=== PATIENT | female | born 2000 | race African-American/Black ===

== ENCOUNTER 2020-01-10 | Emergency (ER) | payer OTHER ==
[~2020-01-10] MED LIST: AMOXICILLIN500 MG PO; BACTRIM DS1 TAB PO; FERR SULFATE325 MG PO; FERROUS SULF325 M2 PO; FLUOXETINE HCL20 MG PO; IBUPROFEN600 MG PO; IRON325 M1 PO; KEFLEX500 MG PO; MINIPRESS2 M1 PO; MOTRIN200 MG PO; MOTRIN800 MG PO; NO; OB COMPLETE/DHA PO; ONDANSETRON4 MG PO; PHENERGAN25 MG/TAB PO; PRAZOSIN HCL1 M1 PO; PRE-NATAL PO; PRENATA3 PO; PRENATAL MULTI +DHA PO; PRENATAL MULTI1 CAP PO; PROZAC10 MG PO; ZOFRAN ODT8 MG PO; ZOFRAN4 MG/TAB PO
[2020-01-10 22:27] LABS: HEMATOCRIT 28.1 % (37.0-47.0); HEMOGLOBIN 8.8 g/dl (12.0-16.0); IMMATURE GRANULOCYTES 0.5 % (0.0-5.0); MEAN CELL VOLUME 74.5 fL CALC (80.0-100.0); MEAN CORPUSCULAR HGB 23.3 pG CALC (26.0-32.0); MEAN CORPUSCULAR HGB CONC 31.3 g/L CALC (32.0-36.0); NEUT# 6.58 thou/uL (2.00-7.15); RED BLOOD COUNT 3.77 mill/uL (4.20-5.60); RED CELL DISTRI WIDTH 15.6 % (11.5-15.5)
[2020-01-10 22:33] LABS: URINE BILIRUBIN - DIPSTICK NEGATIVE (NEGATIVE); URINE BLOOD DIPSTICK NEGATIVE (NEGATIVE); URINE COLOR YELLOW; URINE GLUCOSE - DIPSTICK NEGATIVE (NEGATIVE); URINE KETONE NEGATIVE (NEGATIVE); URINE NITRITE - DIPSTICK NEGATIVE (Negative); URINE PH 7.5 (4.5-8.0); URINE PROTEIN - DIPSTICK NEGATIVE (NEG-TRACE); URINE SPECIFIC GRAVITY 1.015; URINE UROBILINOGEN - DIPSTICK 0.2 E.U./dL (0.2)
[2020-01-10 22:34] LABS: URINE LEUK ESTERASE LARGE (NEGATIVE)
[2020-01-10 22:36] LABS: URINE SQUAMOUS EPITHELIAL CELL MODERATE EPI/hpf (0-FEW)
[2020-01-10 22:41] LABS: ALKALINE PHOSPHATASE 44 u/l (38-126); AMYLASE 46 u/l (30-110); ANION GAP 11 (6-22 (CALC)); BILIRUBIN, TOTAL 0.3 mg/dL (0.0-1.4); BUN 7 mg/dL (7-17); BUN/CREATININE RATIO 18 (12-20 (CALC)); CARBON DIOXIDE 22 mmol/l (22-30); CHLORIDE 106 mmol/l (95-108); CREATININE 0.4 mg/dL (0.5-1.0); GFR > 60 ML/MIN (>=60 (CALC)); GFR FOR AFR.AMER. > 60 ML/MIN (>=60 (CALC)); LIPASE 77 u/l (23-300); POTASSIUM 3.2 mmol/l (3.5-5.1); SGOT/AST 16 u/l (14-36); SODIUM 136 mmol/l (137-146); TOTAL PROTEIN 6.7 g/dL (6.3-8.2)
[2020-01-10 22:43] LABS: ALBUMIN 3.5 g/dL (3.2-5.0)
[2020-01-10] MEDS ORDERED: PROMETHAZINE12.5 MG PO (23:27)
[2020-01-11] MEDS ORDERED: KEFLEX500 M1 PO (00:38)
== END 2020-01-11 00:59 | disposition home or self-care (01) ==
PROVIDERS: Family Medicine
DX: O23.42 Unspecified infection of urinary tract in pregnancy, second trimester (principal); B96.89 Other specified bacterial agents as the cause of diseases classified elsewhere; Z3A.25 25 weeks gestation of pregnancy

== ENCOUNTER 2020-02-01 | Emergency (ER) | payer OTHER ==
[~2020-02-01] MED LIST changes: +KEFLEX500 M1 PO; +PROMETHAZINE12.5 MG PO
[2020-02-01 14:31] LABS: HEMATOCRIT 29.7 % (37.0-47.0); HEMOGLOBIN 9.2 g/dl (12.0-16.0); IMMATURE GRANULOCYTES 0.8 % (0.0-5.0); MEAN CELL VOLUME 71.6 fL CALC (80.0-100.0); MEAN CORPUSCULAR HGB 22.2 pG CALC (26.0-32.0); NEUT# 8.24 thou/uL (2.00-7.15); RED BLOOD COUNT 4.15 mill/uL (4.20-5.60); RED CELL DISTRI WIDTH 15.9 % (11.5-15.5)
[2020-02-01 15:00] LABS: ANION GAP 13 (6-22 (CALC)); BUN 6 mg/dL (7-17); BUN/CREATININE RATIO 15 (12-20 (CALC)); CARBON DIOXIDE 21 mmol/l (22-30); CHLORIDE 103 mmol/l (95-108); CREATININE 0.4 mg/dL (0.5-1.0); GFR > 60 ML/MIN (>=60 (CALC)); GFR FOR AFR.AMER. > 60 ML/MIN (>=60 (CALC)); SODIUM 133 mmol/l (137-146)
[2020-02-01 15:02] LABS: POTASSIUM 4.3 mmol/l (3.5-5.1)
== END 2020-02-01 14:25 | disposition short-term general hospital (02) ==
PROVIDERS: Family Medicine
DX: O62.9 Abnormality of forces of labor, unspecified (principal); Z3A.27 27 weeks gestation of pregnancy
CPT/HCPCS: J3475

== ENCOUNTER 2020-02-23 | Emergency (ER) | payer OTHER ==
[2020-02-23] MEDS ORDERED: [UNRECOGNIZED DRUG - OTHER] (15:50)
[2020-02-23 16:14] LABS: HEMATOCRIT 26.9 % (37.0-47.0); HEMOGLOBIN 8.2 g/dl (12.0-16.0); IMMATURE GRANULOCYTES 0.8 % (0.0-5.0); MEAN CELL VOLUME 70.1 fL CALC (80.0-100.0); MEAN CORPUSCULAR HGB 21.4 pG CALC (26.0-32.0); MEAN CORPUSCULAR HGB CONC 30.5 g/dL CAL (32.0-36.0); NEUT# 6.24 thou/uL (2.00-7.15); RED BLOOD COUNT 3.84 mill/uL (4.20-5.60); RED CELL DISTRI WIDTH 17.8 % (11.5-15.5)
[2020-02-23 16:26] LABS: ANION GAP 10 (6-22 (CALC)); BUN 3 mg/dL (7-17); BUN/CREATININE RATIO 9 (12-20 (CALC)); CARBON DIOXIDE 21 mmol/l (22-30); CHLORIDE 106 mmol/l (95-108); CREATININE 0.3 mg/dL (0.5-1.0); GFR > 60 ML/MIN (>=60 (CALC)); GFR FOR AFR.AMER. > 60 ML/MIN (>=60 (CALC)); POTASSIUM 3.5 mmol/l (3.5-5.1); SODIUM 133 mmol/l (137-146)
== END 2020-02-23 16:41 | disposition short-term general hospital (02) ==
PROVIDERS: Family Medicine
DX: O60.03 Preterm labor without delivery, third trimester (principal); Z3A.30 30 weeks gestation of pregnancy
CPT/HCPCS: J3475

== ENCOUNTER 2020-09-01 00:07 | Emergency (ER) | payer OTHER ==
[~2020-09-01] VITALS: Ht 157.5 cm; Wt 60.0 kg
[~2020-09-01 00:07] MED LIST changes: +[UNRECOGNIZED DRUG - OTHER]
[2020-09-01 00:40] LABS: IMMATURE GRANULOCYTES 0.6 % (0.0-5.0); MEAN CELL VOLUME 72.8 fL CALC (80.0-100.0); MEAN CORPUSCULAR HGB 23.7 pG CALC (26.0-32.0); MEAN CORPUSCULAR HGB CONC 32.6 g/dL CAL (32.0-36.0); NEUT# 7.39 thou/uL (2.00-7.15); RED BLOOD COUNT 4.81 mill/uL (4.20-5.60); RED CELL DISTRI WIDTH 19.5 % (11.5-15.5)
[2020-09-01 00:42] LABS: HEMOGLOBIN 11.4 g/dl (12.0-16.0)
[2020-09-01 00:56] LABS: ALBUMIN 3.8 g/dL (3.2-5.0); ALKALINE PHOSPHATASE 46 u/l (38-126); BILIRUBIN, TOTAL 0.2 mg/dL (0.0-1.4); BUN 7 mg/dL (7-17); BUN/CREATININE RATIO 16 (12-20 (CALC)); CHLORIDE 109 mmol/l (95-108); CREATININE 0.4 mg/dL (0.5-1.0); GFR > 60 ML/MIN (>=60 (CALC)); GFR FOR AFR.AMER. > 60 ML/MIN (>=60 (CALC)); LIPASE 161 u/l (23-300); POTASSIUM 3.5 mmol/l (3.5-5.1); SODIUM 137 mmol/l (137-146); TOTAL PROTEIN 6.6 g/dL (6.3-8.2)
[2020-09-01 00:56] LABS: URINE BILIRUBIN - DIPSTICK NEGATIVE (NEGATIVE); URINE BLOOD DIPSTICK NEGATIVE (NEGATIVE); URINE COLOR YELLOW; URINE GLUCOSE - DIPSTICK NEGATIVE (NEGATIVE); URINE KETONE NEGATIVE (NEGATIVE); URINE LEUK ESTERASE NEGATIVE (NEGATIVE); URINE NITRITE - DIPSTICK NEGATIVE (Negative); URINE PH 6.5 (4.5-8.0); URINE PROTEIN - DIPSTICK NEGATIVE (NEG-TRACE); URINE SPECIFIC GRAVITY 1.015; URINE UROBILINOGEN - DIPSTICK 0.2 E.U./dL (0.2)
[2020-09-01 00:58] LABS: ANION GAP 16 (6-22 (CALC)); CARBON DIOXIDE 16 mmol/l (22-30); SGOT/AST 32 u/l (14-36)
[2020-09-01 01:07] LABS: ETHYL ALCOHOL 474 mg/dl (0-30); MYOGLOBIN 65 ng/mL (0 - 62)
[2020-09-01 01:16] LABS: INTERNATIONAL NORMALIZED RATIO 0.9 RATIO (0.7-1.3); PROTHROMBIN TIME 9.3 SECONDS (9.0-12.5)
[2020-09-01 04:25] VITALS: BP 121/62
== END 2020-09-01 04:25 | disposition short-term general hospital (02) ==
LOC: EDBD 00:07 → ED 00:07 → ED-I 00:25 → ED 04:25
PROVIDERS: Emergency Medicine
DX: O99.310 Alcohol use complicating pregnancy, unspecified trimester (principal); F10.129 Alcohol abuse with intoxication, unspecified; O99.280 Endocrine, nutritional and metabolic diseases complicating pregnancy, unspecified trimester; E87.2 Acidosis; Z20.828 Contact with and (suspected) exposure to other viral communicable diseases; Z3A.00 Weeks of gestation of pregnancy not specified

== ENCOUNTER 2021-02-27 | Emergency (ER) | payer OTHER | END 2021-02-27 21:44 | disposition T-BHPC | DX: O26.893 Other specified pregnancy related conditions, third trimester (principal); R10.2 Pelvic and perineal pain; Z3A.37 37 weeks gestation of pregnancy ==

== ENCOUNTER 2023-02-04 08:21 | Emergency (ER) | payer OTHER ==
[2023-02-04] VITALS (7 sets, daily range): BP systolic 109–122; BP diastolic 67–74
[~2023-02-04] VITALS: Ht 152.4 cm; Wt 47.2 kg
[2023-02-04 09:38] LABS: BASO% 0.4 % (0-3); HEMATOCRIT 33.5 % (37.0-47.0); HEMOGLOBIN 10.5 g/dl (12.0-16.0); LYMPH% 39.4 % (15-41); MEAN CORPUSCULAR HGB 22.9 pG CALC (26.0-32.0); MEAN CORPUSCULAR HGB CONC 31.3 g/dL CAL (32.0-36.0); MONO% 9.4 % (2-13); NEUT# 2.76 thou/uL (2.00-7.15); NEUT% 48.8 % (42-76); RED BLOOD COUNT 4.59 mill/uL (4.20-5.60); RED CELL DISTRI WIDTH 20.6 % (11.5-15.5)
== END 2023-02-04 12:24 | disposition home or self-care (01) ==
LOC: ED 08:21
PROVIDERS: Family Medicine
DX: R07.89 Other chest pain (principal); D64.9 Anemia, unspecified

== ENCOUNTER 2023-05-26 08:53 | Emergency (ER) | payer OTHER ==
[2023-05-26] VITALS (8 sets, daily range): BP systolic 96–123; BP diastolic 52–78
[~2023-05-26] VITALS: Ht 152.4 cm; Wt 52.1 kg
[2023-05-26 10:14] LABS: BASO% 0.4 % (0-3); HEMOGLOBIN 10.9 g/dl (12.0-16.0); IMMATURE GRANULOCYTES 0.3 % (0.0-5.0); LYMPH% 31.9 % (15-41); MEAN CELL VOLUME 76.4 fL CALC (80.0-100.0); MEAN CORPUSCULAR HGB 23.8 pG CALC (26.0-32.0); MEAN CORPUSCULAR HGB CONC 31.1 g/dL CAL (32.0-36.0); MONO% 10.3 % (2-13); NEUT# 3.94 thou/uL (2.00-7.15); NEUT% 56.1 % (42-76); RED BLOOD COUNT 4.58 mill/uL (4.20-5.60); RED CELL DISTRI WIDTH 16.5 % (11.5-15.5)
[2023-05-26 10:26] LABS: ALBUMIN 4.3 g/dL (3.2-5.0); ALKALINE PHOSPHATASE 41 u/l (38-126); BUN 10 mg/dL (7-17); BUN/CREATININE RATIO 15 (12-20 (CALC)); CHLORIDE 107 mmol/l (95-108); CREATININE 0.7 mg/dL (0.5-1.0); GFR FOR AFR.AMER. > 60 ML/MIN (>=60 (CALC)); GFR OTHER RACES > 60 ML/MIN (>=60 (CALC)); POTASSIUM 4.2 mmol/l (3.5-5.1); SGOT/AST 26 u/l (14-36); SODIUM 138 mmol/l (137-146); TOTAL PROTEIN 7.7 g/dL (6.3-8.2)
[2023-05-26 10:28] LABS: ANION GAP 14 (6-22 (CALC)); BILIRUBIN, TOTAL 0.5 mg/dL (0.02-1.3); CARBON DIOXIDE 21 mmol/l (22-30)
[2023-05-26] MEDS ORDERED: ZOFRAN4 MG/TAB PO (10:48)
[2023-05-26] MEDS ORDERED: FERROUS SULF325 M3 PO (10:54)
== END 2023-05-26 11:10 | disposition home or self-care (01) ==
LOC: ED 08:53
PROVIDERS: Family Medicine
DX: O21.9 Vomiting of pregnancy, unspecified (principal); Z3A.00 Weeks of gestation of pregnancy not specified; Z20.822 Contact with and (suspected) exposure to COVID-19

== ENCOUNTER 2023-06-23 07:57 | Emergency (ER) | payer OTHER ==
[~2023-06-23] VITALS: Ht 152.4 cm; Wt 54.0 kg
[2023-06-23] VITALS (7 sets, daily range): BP systolic 103–111; BP diastolic 61–69
[~2023-06-23 07:57] MED LIST changes: +FERROUS SULF325 M3 PO
[2023-06-23] MEDS ORDERED: AMOXICILLIN500 MG PO (09:30)
== END 2023-06-23 10:43 | disposition home or self-care (01) ==
LOC: ED 07:57
DX: O99.511 Diseases of the respiratory system complicating pregnancy, first trimester (principal); J06.9 Acute upper respiratory infection, unspecified; Z3A.09 9 weeks gestation of pregnancy; Z20.822 Contact with and (suspected) exposure to COVID-19; N91.2 Amenorrhea, unspecified

== ENCOUNTER 2024-06-28 11:48 | Emergency (ER) | payer OTHER ==
[~2024-06-28] VITALS: Ht 152.4 cm; Wt 63.5 kg
[~2024-06-28 11:48] MED LIST changes: +AMOX/K CLAV875 M1 PO
[2024-06-28] MEDS ORDERED: PENICILLN VK500 MG PO (13:41)
[2024-06-28 14:05] VITALS: BP 103/60
== END 2024-06-28 14:00 | disposition home or self-care (01) ==
LOC: ED 11:48
DX: J02.9 Acute pharyngitis, unspecified (principal); Z20.822 Contact with and (suspected) exposure to COVID-19

== ENCOUNTER 2025-01-03 08:46 | Emergency (ER) | payer MEDICAID ==
[2025-01-03] VITALS (24 sets, daily range): BP systolic 88–140; BP diastolic 48–76
[~2025-01-03] VITALS: Ht 152.4 cm; Wt 68.0 kg
[~2025-01-03 08:46] MED LIST changes: +PENICILLN VK500 MG PO
[2025-01-03] MEDS ORDERED: SODIUM CHLORIDE 0.9% 1,000 ML IV ONE ×2 (09:05→10:45)
[2025-01-03 09:19] LABS: BASO% 0.3 % (0-3); EOS% 1.9 % (0-8); HEMATOCRIT 33.4 % (37.0-47.0); HEMOGLOBIN 10.7 g/dl (12.0-16.0); IMMATURE GRANULOCYTES 0.1 % (0.0-5.0); LYMPH% 26.8 % (15-41); MEAN CELL VOLUME 77.9 fL CALC (80.0-100.0); MEAN CORPUSCULAR HGB 24.9 pG CALC (26.0-32.0); MONO% 12.1 % (2-13); NEUT# 5.25 thou/uL (2.00-7.15); NEUT% 58.8 % (42-76); RED BLOOD COUNT 4.29 mill/uL (4.20-5.60); RED CELL DISTRI WIDTH 16.6 % (11.5-15.5)
[2025-01-03 09:41] LABS: ALBUMIN 4.7 g/dL (3.2-5.0); BILIRUBIN, TOTAL 0.5 mg/dL (0.02-1.3); CREATININE 0.6 mg/dL (0.5-1.0); POTASSIUM 3.6 mmol/l (3.5-5.1)
[2025-01-03 09:47] LABS: URINE BILIRUBIN - DIPSTICK Negative (NEGATIVE); URINE BLOOD DIPSTICK Negative (NEGATIVE); URINE GLUCOSE - DIPSTICK Negative (NEGATIVE); URINE KETONE Negative (NEGATIVE); URINE NITRITE - DIPSTICK Negative (Negative); URINE PH 7.5 (4.5-8.0); URINE PROTEIN - DIPSTICK Negative (NEG-TRACE); URINE SPECIFIC GRAVITY 1.015; URINE UROBILINOGEN - DIPSTICK 0.2 E.U./dL (0.2)
[2025-01-03 10:02] LABS: URINE COLOR Yellow; URINE LEUK ESTERASE Small (NEGATIVE)
[2025-01-03 10:14] LABS: URINE RBC 0-2 RBC/hpf (0-5); URINE SQUAMOUS EPITHELIAL CELL MODERATE EPI/hpf (0-FEW)
[2025-01-03 14:23] LABS: CREATININE 0.5 mg/dL (0.5-1.0); POTASSIUM 3.5 mmol/l (3.5-5.1)
[2025-01-03 14:25] LABS: BILIRUBIN, TOTAL 0.2 mg/dL (0.02-1.3); TOTAL PROTEIN 5.6 g/dL (6.3-8.2)
== END 2025-01-03 15:12 | disposition home or self-care (01) ==
LOC: ED 08:46
PROVIDERS: Emergency Medicine
DX: O99.280 Endocrine, nutritional and metabolic diseases complicating pregnancy, unspecified trimester (principal); E16.2 Hypoglycemia, unspecified; E86.0 Dehydration; O26.819 Pregnancy related exhaustion and fatigue, unspecified trimester; Z3A.00 Weeks of gestation of pregnancy not specified; Z20.822 Contact with and (suspected) exposure to COVID-19

== ENCOUNTER 2025-02-08 13:34 | Emergency (ER) | payer OTHER ==
[2025-02-08] VITALS (9 sets, daily range): BP systolic 94–112; BP diastolic 59–69
[~2025-02-08] VITALS: Ht 152.4 cm; Wt 53.1 kg
[2025-02-08] MEDS ORDERED: PENicillin V POTASSIUM 500 MG/TAB PO ONE (15:35)
[2025-02-08] MEDS ORDERED: ONDANSETRON 4 MG/TAB ODT SL ONE (15:35)
[2025-02-08] MEDS ORDERED: ZOFRAN4 MG/TAB PO (17:21)
== END 2025-02-08 17:27 | disposition home or self-care (01) ==
LOC: ED 13:34
DX: O99.511 Diseases of the respiratory system complicating pregnancy, first trimester (principal); J02.0 Streptococcal pharyngitis; Z3A.11 11 weeks gestation of pregnancy; Z20.822 Contact with and (suspected) exposure to COVID-19